=== PATIENT | female | born 1960 ===

== ENCOUNTER 2018-03-27 08:53 | Emergency (ER) | payer MEDICAID, OTHER ==
[2018-03-27 08:53] VITALS: BMI 25.7
[2018-03-27 09:41] VITALS: PULSE 88
--- NOTE | 2018-03-27 09:51 | ED PDOC ---
HPI: Chest Pain Time Seen by Provider: 03/27/18 09:05 Chief Complaint (Nursing): Chest Pain Chief Complaint (Provider): HBP and CP History Per: Patient, Second Facing Baster (#[id number]) History/Exam Limitations: no limitations Onset/Duration Of Symptoms: Days (x1) Current Symptoms Are (Timing): Still Present Additional Complaint(s): 57 year old female with pmhx of htn and diabetes type II presents to the ED for evaluation of high blood pressure at home and mid sternal non-radiating chest pain since yesterday morning. She notes at onset, she missed a dose of her BP medication because she was not feeling well, and has since been unable to control her BP despite taking her evening and morning meds normally. Denies shortness of breath, dizziness, nausea, and vomiting. PMD: Vianey Cervantes Past Medical History Reviewed: Historical Data, Nursing Documentation, Vital Signs Vital Signs: Last Vital Signs Temp 97.6 F 03/27/18 08:57 Pulse 88 03/27/18 09:41 Resp 19 03/27/18 09:41 BP 132/74 03/27/18 09:41 Pulse Ox 98 03/27/18 09:41 - Medical History PMH: Diabetes (II), HTN, Hypercholesterolemia Denies: Chronic Kidney Disease - Surgical History Surgical History: Cholecystectomy, (x3) - Family History Family History: States: No Known Family Hx Denies: [place], CAD - Social History Current smoker - smoking cessation education provided: No Alcohol: Occasional Drugs: Denies - Home Medications Home Medications: Ambulatory Orders Medication Instructions Recorded RX: hydroCHLOROthiazide 25 mg PO DAILY 07/20/15 [Hydrodiuril] metFORMIN [glucOPHAGE] 500 mg PO BID 07/20/15 RX: traMADol [Ultram] 50 mg PO Q8H PRN #5 tab 05/24/16 - Allergies Allergies/Adverse Reactions: Allergies Allergy/AdvReac Type Severity Reaction Status Date / Time No Known Allergies Allergy Verified 11/09/15 09:24 Review of Systems ROS Statement: Except As Marked, All Systems Reviewed And Found Negative Constitutional: Positive for: Other (high blood pressure) Cardiovascular: Positive for: Chest Pain (mid sternal, non-radiating) Respiratory: Negative for: Shortness of Breath Gastrointestinal: Negative for: Nausea, Vomiting Neurological: Negative for: Dizziness Physical Exam - Reviewed Nursing Documentation Reviewed: Yes Vital Signs Reviewed: Yes - Physical Exam Appears: Positive for: No Acute Distress Head Exam: Positive for: ATRAUMATIC, NORMOCEPHALIC Skin: Positive for: Normal Color, Warm Eye Exam: Positive for: Normal appearance, EOMI, PERRL ENT: Positive for: Normal ENT Inspection Neck: Positive for: Normal, Painless ROM, Supple Cardiovascular/Chest: Positive for: Regular Rate, Rhythm Respiratory: Positive for: Normal Breath Sounds. Negative for: Respiratory Distress Gastrointestinal/Abdominal: Positive for: Normal Exam, Soft. Negative for: Tenderness Back: Positive for: Normal Inspection Extremity: Positive for: Normal ROM (of all extremities). Negative for: Calf Tenderness Neurologic/Psych: Positive for: Alert, Oriented (x3). Negative for: Motor/Sensory Deficits - Laboratory Results Result Diagrams: 03/27/18 09:30 03/27/18 09:30 - ECG O2 Sat by Pulse Oximetry: 98 (RA) Pulse Ox Interpretation: Normal Medical Decision Making Medical Decision Making: Time: 919 Initial Impression: workup for high bp and ACS Initial Plan: --EKG --BNP --BMP --Trop I --CBC with differential --CXR --Accucheck --Aspirin 325mg PO --Reassess Blood pressure has normalized in ED without medication administration here. 18:44 Significant delays in diagnosis due to [employer] down time. Due to 2 sets of negative Troponins, EKG normal sinus rhythms, chest xray and other labs unremarkable, patient will be discharged and advised to followup with PMD. Scribe Attestation: Documented by Susan Patrick, acting as a scribe for Minal Arteaga MD. Provider Scribe Attestation: All medical record entries made by the Scribe were at my direction and personally dictated by me. I have reviewed the chart and agree that the record accurately reflects my personal performance of the history, physical exam, medical decision making, and the department course for this patient. I have also personally directed, reviewed, and agree with the discharge instructions and disposition. Disposition - Clinical Impression Clinical Impression: Atypical chest pain, Hypertension - Disposition Referrals: Vianey Cervantes MD [Primary Care Provider] - Disposition Time: 18:44 Condition: IMPROVED Additional Instructions: Follow up with PMD for further workup of chest pain. Today your workup was normal. Return to the emergency department if symptoms worsen or if new symptoms develop. Continue to take home blood pressure medications. Do not consume drugs or alcohol. Instructions: Chest Pain (DC) Forms: [facility] (Kuwaiti) Print Language: NAMIBIAN
--- NOTE | 2018-03-27 09:56 | RAD ---
Date of service: 03/27/2018 HISTORY: possible admission COMPARISON: No prior. FINDINGS: LUNGS: No active pulmonary disease. PLEURA: No significant pleural effusion identified, no pneumothorax apparent. CARDIOVASCULAR: No aortic atherosclerotic calcification present. Normal cardiac size. No pulmonary vascular congestion. OSSEOUS STRUCTURES: Thoracic spondylosis noted. Probable incidental bone island over right humeral head. VISUALIZED UPPER ABDOMEN: Normal. OTHER FINDINGS: None. IMPRESSION: No active disease. No interval pathology noted.
[2018-03-27 10:35] LABS: EOS # 0.1 K/uL (0.0-0.7); EOS % 1.7 % (0.0-4.0); HEMOGLOBIN 13.5 g/dL (12.0-16.0); LYMPH # 1.3 K/uL (1.0-4.3); LYMPH % 20.5 % (20.0-40.0); MEAN CELL VOLUME 94.3 fl (81.0-99.0); MEAN CORPUSCULAR HEMOGLOBIN 30.2 pg (27.0-31.0); MEAN PLATELET VOLUME 8.9 fl (7.2-11.7); MONO # 0.4 K/uL (0.0-0.8); MONO % 6.8 % (0.0-10.0); NEUT # 4.4 K/uL (1.8-7.0); NRBC % 0.1 % (0.0-0.0); RBC 4.49 Mil/uL (3.80-5.20); RED CELL DISTRIBUTION WIDTH 13.8 % (11.5-14.5); WHITE BLOOD COUNT 6.3 K/uL (4.8-10.8)
[2018-03-27 10:36] LABS: BASO # 0.1 K/uL (0.0-0.2)
[2018-03-27 10:52] LABS: BLOOD UREA NITROGEN 10 mg/dl (7-17); CALCIUM 9.7 mg/dL (8.4-10.2); GFR NON-AFRICAN AMERICAN > 60
[2018-03-27 11:38] LABS: B-TYPE NATRIURETIC PEPTIDE 71.3 pg/ml (0-900)
[2018-03-27 19:16] VITALS: BP 132/83; RESP 18; TEMP 98.6
[2018-03-27 19:16] LABS: PARTIAL THROMBOPLASTIN TIME 23.6 Seconds (25.6-37.1)
--- NOTE | 2018-03-28 09:22 | CARD ---
APPROVED REPORT Date of service: 03/27/2018 EKG Measurement Heart [id number] <Conclusion> Normal sinus rhythm Nonspecific ST abnormality Abnormal ECG
[2018-03-31 16:13] VITALS: O2SAT 98
== END 2018-03-27 19:15 | disposition home or self-care (01) ==
LOC: SUPCPDRO 08:53 → H.ER 08:53
DX: R07.89 Other chest pain (principal); I10 Essential (primary) hypertension; E11.9 Type 2 diabetes mellitus without complications; E78.00 Pure hypercholesterolemia, unspecified; Z79.84 Long term (current) use of oral hypoglycemic drugs

== ENCOUNTER 2018-07-27 09:11 | Emergency (ER) | payer MEDICAID ==
[2018-07-27 09:17] VITALS: BMI 27.9
[2018-07-27 10:35] LABS: BASO # 0.1 K/uL (0.0-0.2); BASO % 1.2 % (0.0-2.0); EOS # 0.2 K/uL (0.0-0.7); HEMOGLOBIN 13.6 g/dL (12.0-16.0); LYMPH # 1.1 K/uL (1.0-4.3); LYMPH % 17.9 % (20.0-40.0); MEAN CELL VOLUME 90.7 fl (81.0-99.0); MEAN CORPUSCULAR HEMOGLOBIN 29.4 pg (27.0-31.0); MEAN CORPUSCULAR HGB CONC 32.5 g/dL (33.0-37.0); MEAN PLATELET VOLUME 8.3 fl (7.2-11.7); MONO # 0.4 K/uL (0.0-0.8); MONO % 5.9 % (0.0-10.0); NEUT # 4.3 K/uL (1.8-7.0); NRBC % 0.1 % (0.0-0.0); RBC 4.62 Mil/uL (3.80-5.20); RED CELL DISTRIBUTION WIDTH 13.7 % (11.5-14.5)
[2018-07-27 10:38] LABS: BLOOD UREA NITROGEN 12 mg/dl (7-17); CALCIUM 9.2 mg/dL (8.4-10.2); GFR NON-AFRICAN AMERICAN > 60
--- NOTE | 2018-07-27 10:43 | ED PDOC ---
HPI: Hypertension/Hypotension Time Seen by Provider: 07/27/18 09:28 Chief Complaint (Nursing): High Blood Pressure Chief Complaint (Provider): High Blood Pressure, Palpitations History Per: Patient History/Exam Limitations: no limitations Onset/Duration Of Symptoms: Hrs Associated Symptoms: Other (systolic blood pressure was 155) Quality Of Symptoms: Rapid Heart Rate Additional Complaint(s): 57 year old female with history of HTN presents to ED with high blood pressure and palpitations since this morning. Patient reports of having woke up earlier this morning and feeling like her heart was racing and thought her blood pressure was elevated. Patient notes of checking her blood pressure and finding her systolic pressure to be 155. Patient states she too took Losartan at 0800 and came here for further evaluation. She denies chest pain, SOB, leg swelling, headache, weakness, numbness. Patient feels a little better after arriving here but still gets nervous in the ER. PMD: Ari Petty Past Medical History Reviewed: Historical Data, Nursing Documentation, Vital Signs Vital Signs: Last Vital Signs Temp 98.4 F 07/27/18 09:16 Pulse 91 H 07/27/18 09:16 Resp 18 07/27/18 09:16 BP 155/71 H 07/27/18 09:16 Pulse Ox 98 07/27/18 09:16 Primary Care Provider: Bernardo Ely - Medical History PMH: Diabetes (II), HTN, Hypercholesterolemia Denies: Chronic Kidney Disease - Surgical History Surgical History: Cholecystectomy, (x3) - Family History Family History: States: Unknown Family Hx Denies: [place], CAD - Social History Current smoker - smoking cessation education provided: No Alcohol: Social Drugs: Denies - Home Medications Home Medications: Ambulatory Orders Medication Instructions Recorded hydroCHLOROthiazide [Hydrodiuril] 25 mg PO DAILY 07/20/15 metFORMIN [glucOPHAGE] 500 mg PO BID 07/20/15 traMADol [Ultram] 50 mg PO Q8H PRN #5 tab 05/24/16 - Allergies Allergies/Adverse Reactions: Allergies Allergy/AdvReac Type Severity Reaction Status Date / Time No Known Allergies Allergy Verified 07/27/18 09:34 Review of Systems ROS Statement: Except As Marked, All Systems Reviewed And Found Negative Constitutional: Negative for: Weakness Cardiovascular: Negative for: Chest Pain Respiratory: Negative for: Shortness of Breath Neurological: Negative for: Numbness, Headache Physical Exam - Reviewed Nursing Documentation Reviewed: Yes Vital Signs Reviewed: Yes - Physical Exam Appears: Positive for: No Acute Distress Head Exam: Positive for: ATRAUMATIC, NORMOCEPHALIC Skin: Positive for: Normal Color, Warm, Dry Eye Exam: Positive for: EOMI, Normal appearance, PERRL ENT: Positive for: Normal ENT Inspection Neck: Positive for: Normal, Painless ROM, Supple Cardiovascular/Chest: Positive for: Regular Rate, Rhythm. Negative for: Murmur Respiratory: Positive for: Normal Breath Sounds. Negative for: Respiratory Distress Gastrointestinal/Abdominal: Positive for: Normal Exam Back: Positive for: Normal Inspection. Negative for: L CVA Tenderness, R CVA Tenderness, Vertebral Tenderness Extremity: Positive for: Normal ROM (upper and lower). Negative for: Pedal Edema, Deformity Neurological/Psych: Positive for: Alert, Oriented (x3). Negative for: Motor/Sensory Deficits - Laboratory Results Result Diagrams: 07/27/18 10:23 07/27/18 10:23 - ECG O2 Sat by Pulse Oximetry: 98 (RA) Pulse Ox Interpretation: Normal - Progress Re-evaluation Time: 13:00 Condition: Re-examined, Improved Medical Decision Making Medical Decision Making: Time: 1005 Initial Impression: palpitations and elevated blood pressure DDx includes: complications of HTN, uncontrolled HTN --rule out ACS Initial Plan: --EKG --Labs (CBC, BMP, Troponin) --gyroscopic instrument tester Scribe Attestation: Documented by Lonny Farrar training under Juanito Rebolledo, acting as a scribe for Marlene Long MD. Provider Scribe Attestation: All medical record entries made by the Scribe were at my direction and personally dictated by me. I have reviewed the chart and agree that the record accurately reflects my personal performance of the history, physical exam, medical decision making, and the department course for this patient. I have also personally directed, reviewed, and agree with the discharge instructions and disposition. Disposition - Clinical Impression Clinical Impression: Hypertension, Palpitations - Patient ED Disposition Is Patient to be Admitted: No Doctor Will See Patient In The: Office Counseled Patient/Family Regarding: Studies Performed, Diagnosis, Need For Followup - Disposition Referrals: [facility] [Outside] Disposition: Routine/Home Disposition Time: 13:04 Condition: GOOD Additional Instructions: GISELE OCAMPO, thank you for letting us take care of you today. Your provider was Marlene Long MD and you were treated for HIGH BLOOD PRESSURE. The emergency medical care you received today was directed at your acute symptoms. If you were prescribed any medication, please fill it and take as directed. It may take several days for your symptoms to resolve. Return to the Emergency Depa rtment if your symptoms worsen, do not improve, or if you have any other problems. Please contact your doctor or call one of the physicians/clinics you have been referred to that are listed on the Patient Visit Information form that is included in your discharge packet. Bring any paperwork you were given at discharge with you along with any medications you are taking to your follow up visit. Our treatment cannot replace ongoing medical care by a primary care provider outside of the emergency department. Thank you for allowing the [facility] team to be part of your care today. If you had an X-Ray or CT scan: A Radiologist will review the ED reading if any change in treatment is needed we will contact you. If you had a blood, urine, or wound culture: It will take several days for the results, if any change in treatment is needed we will contact you. Instructions: High Blood Pressure in Adults Forms: [employer] (Upper Sorbian) Print Language: TURKISH
[2018-07-27 13:09] VITALS: BP 115/66; PULSE 73; RESP 16; TEMP 98.6
[2018-07-27 13:15] VITALS: O2SAT 98
--- NOTE | 2018-07-27 20:05 | CARD ---
APPROVED REPORT Date of service: 07/27/2018 EKG Measurement Heart [id number] <Conclusion> Normal sinus rhythm Normal ECG
== END 2018-07-27 13:33 | disposition home or self-care (01) ==
LOC: H.ER 09:11
DX: I10 Essential (primary) hypertension (principal); R00.2 Palpitations; E11.9 Type 2 diabetes mellitus without complications; E78.00 Pure hypercholesterolemia, unspecified; Z79.84 Long term (current) use of oral hypoglycemic drugs